=== PATIENT | male | born 1955 | race Caucasian/White ===

== ENCOUNTER 2016-08-04 10:07 | Emergency (ER) | payer SELFPAY ==
[~2016-08-04] VITALS: Ht 167.6 cm; Wt 63.2 kg
[~2016-08-04 10:07] MED LIST: ASPI325T PO; HYDR10TA16 PO; LISI-360 PO; VALI10TA PO
[2016-08-04 10:21] VITALS: BP 129/76; PULSE 68; RESP 16; TEMP 98.5; O2SAT 99
[2016-08-04] MEDS ORDERED: LISI10TA3 PO (10:33)
[2016-08-04] MEDS ORDERED: MELO-1 PO (10:33)
[2016-08-04] MEDS ORDERED: DIAZ10TA PO (10:33)
[2016-08-04] MEDS ORDERED: HYDR-3535 PO (10:33)
[2016-08-04] MEDS ORDERED: ASPI325T PO (10:33)
--- NOTE | 2016-08-04 11:17 | PD ---
HPI Chief Complaint: Pain: Acute or Chronic Time Seen by Provider: 10:43 Travel History International Travel<30 days: No Contact w/Intl Traveler<30days: No Traveled to known affect area: No History of Present Illness HPI 60-year-old male with a history of degenerative disc disease who is on chronic opiates at home presents emergency department for evaluation of acute on chronic low back pain for the past 4 days. 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 Denies any history of acute onset, denies any saddle anesthesia denies any difficulty urinating and denies any focal weakness of back. Patient states is become hard for him to get out of bed because of his pain. PFSH Past Medical History Hx Anticoagulant Therapy: Yes Arthritis: No Anxiety: Yes (LATELY, PERSONAL ISSUES) Depression: No Heart Rhythm Problems: No Cancer: No Cardiac Catheterization: Yes Cardiovascular Problems: Yes (htn on meds, [place] x 3 with one stents) High Cholesterol: No Chest Pain: Yes (PAST ONE DAY ) Congestive Heart Failure: No Coronary Artery Disease: Yes (STENT) Diminished Hearing: No Endocrine: No Gastrointestinal Disorders: Yes GERD: Yes Genitourinary: No Hiatal Hernia: No Hypertension: Yes Immune Disorder: No Implanted Vascular Access Dvce: No Musculoskeletal: Yes Neurologic: No Psychiatric: No Reproductive: No Respiratory: No (PT HAS BECOME CONGESTED AND FEBRILE SINCE ADMISSION.) Ulcer: No Past Surgical History Abdominal Surgery: Yes (APPENDECTOMY) Appendectomy: Yes Cardiac Surgery: No Coronary Stent: Yes Ear Surgery: No Endocrine Surgery: No Eye Surgery: No Genitourinary Surgery: No Gynecologic Surgery: No Neurologic Surgery: No Oral Surgery: Yes (TEETH PULLED) Thoracic Surgery: No Other Surgery: Yes Social History Alcohol Use: Yes (4-5 DRINKS A DAY) Tobacco Use: No Substance Use: No Allergies-Medications (Allergen,Severity, Reaction): Coded Allergies: No Known Allergies (Verified , 08/04/16) Reported Meds & Prescriptions Reported Meds & Active Scripts Active Prednisone 20 Mg Tab 60 Mg PO DAILY 5 Days Reported Meloxicam 15 Mg Tab 15 Mg PO DAILY Lisinopril 10 Mg Tab 10 Mg PO DAILY Lortab (Hydrocodone-Acetaminophen) 10-325 Mg Tab 1 Tab PO TID PRN Diazepam 10 Mg Tab 10 Mg PO HS PRN Aspirin 325 Mg Tab 325 Mg PO DAILY Review of Systems Except as stated in HPI: all other systems reviewed are Neg Physical Exam Narrative GENERAL: Well-nourished, well-developed patient. SKIN: Warm and dry. HEAD: Normocephalic. EYES: No scleral icterus. No injection or drainage. NECK: Supple, trachea midline. No JVD or lymphadenopathy. CARDIOVASCULAR: Regular rate and rhythm without murmurs, gallops, or rubs. RESPIRATORY: Breath sounds equal bilaterally. No accessory muscle use. GASTROINTESTINAL: Abdomen soft, non-tender, nondistended. MUSCULOSKELETAL: No cyanosis, or edema. No midline CT or L-spine tenderness. No tenderness at the SI joints. Patient ambulates emergency Department with an antalgic gait. Full strength in bilateral lower extremities. Pulses motor and sensory intact distally in all 4 extremity's. Sensory is intact in all 4 extremity's. BACK: Nontender without obvious deformity. No CVA tenderness. Data Data Last Documented VS Vital Signs Date Time Temp Pulse Resp B/P Pulse Ox O2 Delivery O2 Flow Rate FiO2 08/04/16 11:23 66 18 141/79 100 Room Air 08/04/16 10:[address] Lumb Spine W/O Contrast (08/04/16 ) MDM Medical Decision Making Medical Screen Exam Complete: Yes Emergency Medical Condition: Yes Differential Diagnosis Pathologic fracture, DDD, Cauda Equina Syndrome excluded on H/P, sciatica, muscle spasm Narrative Course Last [address] 08/04/16 0000 Signed Impressions: Service Date/Time: Thursday, August 04, 2016 11:11 - CONCLUSION: 1. Mild broad-based disc bulges at L-2, L3-4 and L5-S1 levels without canal stenosis. 2. Her broad-based protrusion L4-5 causes mild canal stenosis. 3. Moderate broad-based disc bulge L2-3 causing mild canal stenosis. 4. Neural foraminal narrowing at L4-5 as described above. Darryl Bridges MD Patient given pain medication. Discussed need for follow upwith PCP and possibly neurosurgeon in future. May need OP MRI. Ambulates in ED and has full strength. Cauda equina ROS negative. Stable for DC. Discussed return to ED criteria and symptomatic management at home. Diagnosis Primary Impression: Acute exacerbation of chronic low back pain Med/Other Pt SpecificInfo: Prescription(s) given Scripts Prednisone 20 Mg Tab60 Mg PO DAILY 5 Days Ref 0 Prov:Herrera Jordan MD 08/04/16 Disposition: 01 DISCHARGE HOME Condition: Stable Herrera Jordan MD Aug 04, 2016 11:17
[2016-08-04 11:23] VITALS: BP 141/79; PULSE 66; RESP 18; O2SAT 100
--- NOTE | 2016-08-04 11:47 | RADHPO ---
EXAM DATE/TIME: 08/04/2016 11:11 [facility] COMPARISON: No previous studies available for comparison. INDICATIONS : Lower back pain for five days, no recent trauma. RADIATION DOSE: 19.92 CTDIvol (mGy) MEDICAL HISTORY : Cardiovascular disease. Gastroesophageal reflux disease. Hypertension. SURGICAL HISTORY : Coronary artery stent. Appendectomy. ENCOUNTER: Initial ACUITY: 4 - 6 days PAIN SCALE: 5/10 LOCATION: Bilateral lower back. TECHNIQUE: Volumetric scanning of the lumbar spine was performed. Multiplanar reconstructions in the sagittal, coronal and oblique axial planes were performed. Using automated exposure control and adjustment of the mA and/or kV according to patient size, radiation dose was kept as low as reasonably achievable t o obtain optimal diagnostic quality images. FINDINGS: VERTEBRAE: Normal vertebral body height. Degenerative disc disease at L2-3, L4-5 and L5-S1 levels. Diffuse mild degenerative changes. Incidentally osteophytes at multiple levels. ALIGNMENT: No evidence of subluxation. T12-L1: The thecal sac has a normal diameter. No evidence of disc bulge or protrusion. The neural foramina are patent bilaterally. L1-L2: Mild broad-based disc bulge abuts ventral thecal sac. No canal stenosis.. The neural foramina are pa tent bilaterally. L2-L3: Moderate broad-based disc bulge abuts ventral thecal sac. Mild degree of canal stenosis. Mild facet a rthropathy The neural foramina are patent bilaterally. L3-L4: Mild broad-based disc bulge abuts ventral thecal sac. No canal stenosis. The neural foramina are pat ent bilaterally. L4-L5: Moderate broad-based protrusion abuts the ventral thecal sac. Mild degree of canal stenosis. Mild to moderate facet arthropathy. Mild neural foraminal narrowing on the left and moderate to severe narrow ing on the right. The neural foramina are patent bilaterally. L5-S1: Mild broad-based disc bulge abuts ventral thecal sac. No canal stenosis.. The neural foramina are pa tent bilaterally. CONCLUSION: 1. Mild broad-based disc bulges at L-2, L3-4 and L5-S1 levels without canal stenosis. 2. Her broad-based protrusion L4-5 causes mild canal stenosis. 3. Moderate broad-based disc bulge L2-3 causing mild canal stenosis. 4. Neural foraminal narrowing at L4-5 as described above. Darryl Bridges MD on August 04, 2016 at 11:39 Board Certified Radiologist. This report was verified electronically.
[2016-08-04] MEDS ORDERED: PRED20 PO (11:57)
== END 2016-08-04 12:08 | disposition home or self-care (01) ==
LOC: PHED 10:07
DX: M54.5 Low back pain (principal); G89.29 Other chronic pain; I10 Essential (primary) hypertension; Z79.01 Long term (current) use of anticoagulants; Z87.39 Personal history of other diseases of the musculoskeletal system and connective tissue; Z86.79 Personal history of other diseases of the circulatory system; Z87.19 Personal history of other diseases of the digestive system
CPT/HCPCS: 72131

== ENCOUNTER 2016-08-12 17:22 | Inpatient (IN) | payer SELFPAY ==
[~2016-08-12] VITALS: Ht 170.2 cm; Wt 62.0 kg
[~2016-08-12 17:22] MED LIST changes: +DIAZ10TA PO; +HYDR-3535 PO; -HYDR10TA16 PO; -LISI-360 PO; +LISI10TA3 PO; +MELO-1 PO; +PRED20 PO; -VALI10TA PO
[2016-08-12 17:24] VITALS: BP_SYST 111; BP_SYST 127; BP_DIAS 55; BP_DIAS 68; PULSE 115; RESP 22; TEMP 97.8; O2SAT 97
[2016-08-12] MEDS ORDERED: SODIUM CHLOR 0.9% 1000 ML INJ 1,000 ML IV SCH (17:58)
--- NOTE | 2016-08-12 17:58 | PD ---
HPI Chief Complaint: Cardiac Complaint Time Seen by Provider: 17:48 Travel History International Travel<30 days: No Contact w/Intl Traveler<30days: No Traveled to known affect area: No History of Present Illness HPI This is a 60-year-old male with history of coronary artery disease with stents in place, hypertension presents for evaluation. He reports that 2 days ago he ate some pizza and later on in the evening he developed nausea, vomiting, diarrhea. He reports that his friend who ate pizza also had nausea, vomiting and diarrhea. He reports multiple episodes of nausea, vomiting and diarrhea over the past 2 days. He reports the diarrhea has been black in color. He endorses some substernal chest pain for the past 2 days as well which is worse with exertion. He describes it as a sharp pain. It does not radiate anywhere else. He does also endorse some dyspnea. He was seen by his primary care physician today, Dr. Dominguez, who told him that his blood pressure was lower than usual and his long-standing murmur was more wild than usual. He sent him here for further evaluation. The patient reports daily aspirin and meloxicam use. Denies any history of peptic ulcer disease. He does occasionally drink. Denies any abdominal pain. Denies any calf swelling, recent travel. PFSH Past Medical History Hx Anticoagulant Therapy: Yes Arthritis: No Anxiety: Yes (LATELY, PERSONAL ISSUES) Depression: No Heart Rhythm Problems: No Cancer: No Cardiac Catheterization: Yes Cardiovascular Problems: Yes (htn on meds, [place] x 3 with one stents) High Cholesterol: No Chest Pain: Yes (PAST ONE DAY ) Congestive Heart Failure: No Coronary Artery Disease: Yes (STENT) Diminished Hearing: No Endocrine: No Gastrointestinal Disorders: Yes GERD: Yes Genitourinary: No Hiatal Hernia: No Hypertension: Yes Immune Disorder: No Implanted Vascular Access Dvce: No Musculoskeletal: Yes Neurologic: No Psychiatric: No Reproductive: No Respiratory: No (PT HAS BECOME CONGESTED AND FEBRILE SINCE ADMISSION.) Ulcer: No Past Surgical History Abdominal Surgery: Yes (APPENDECTOMY) Appendectomy: Yes Cardiac Surgery: No Coronary Stent: Yes Ear Surgery: No Endocrine Surgery: No Eye Surgery: No Genitourinary Surgery: No Gynecologic Surgery: No Neurologic Surgery: No Oral Surgery: Yes (TEETH PULLED) Thoracic Surgery: No Other Surgery: Yes Social History Alcohol Use: Yes (4-5 DRINKS A DAY) Tobacco Use: No Substance Use: No Allergies-Medications (Allergen,Severity, Reaction): Coded Allergies: No Known Allergies (Verified , 08/12/16) Reported Meds & Prescriptions Reported Meds & Active Scripts Active Reported Meloxicam 15 Mg Tab 15 Mg PO DAILY Lisinopril 10 Mg Tab 10 Mg PO DAILY Lortab (Hydrocodone-Acetaminophen) 10-325 Mg Tab 1 Tab PO TID PRN Diazepam 10 Mg Tab 10 Mg PO HS PRN Aspirin 325 Mg Tab 325 Mg PO DAILY Review of Systems Except as stated in HPI: all other systems reviewed are Neg Physical Exam Narrative GENERAL: Well-developed well-nourished male in no acute distress SKIN: Warm and dry. HEAD: Atraumatic. Normocephalic. EYES: Pupils equal and round. No scleral icterus. No injection or drainage. ENT: No nasal bleeding or discharge. Mucous membranes pink and moist. NECK: Trachea midline. No JVD. CARDIOVASCULAR: Regular rate and rhythm. 2/6 systolic murmur is appreciated. RESPIRATORY: No accessory muscle use. Clear to auscultation. Breath sounds equal bilaterally. GASTROINTESTINAL: Abdomen soft, non-tender, nondistended. Hepatic and splenic margins not palpable. Rectal examination is Hemoccult positive. MUSCULOSKELETAL: No obvious deformities. No edema NEUROLOGICAL: Awake and alert. No obvious cranial nerve deficits. Motor grossly within normal limits. Normal speech. PSYCHIATRIC: Appropriate mood and affect; insight and judgment normal. Data Data Last Documented VS Vital Signs Date Time Temp Pulse Resp B/P Pulse Ox O2 Delivery O2 Flow Rate FiO2 08/12/16 18:33 100 Room Air 08/12/16 17:24 111/68 08/12/16 17:24 97.8 115 22 Orders Type And Screen (08/12/16 17:55) Complete Blood Count With Diff (08/12/16 17:55) Comprehensive Metabolic Panel (08/12/16 17:55) Lipase (08/12/16 17:55) Act Partial Throm Time (Ptt) (08/12/16 17:55) Prothrombin Time / Inr (Pt) (08/12/16 17:55) Electrocardiogram (08/12/16 17:55) Ckmb (Isoenzyme) Profile (08/12/16 17:55) Magnesium (Mg) (08/12/16 17:55) Troponin I (08/12/16 17:55) Chest, Single Ap (08/12/16 17:55) Pantoprazole Inj (Protonix Inj) (08/12/16 18:00) Sodium Chlor 0.9% 1000 Ml Inj (Ns 1000 M (08/12/16 17:58) Labs Laboratory Tests Test 08/12/16 18:00 White Blood Count 15.4 TH/MM3 Red Blood Count 2.59 MIL/MM3 Hemoglobin 8.0 GM/DL Hematocrit 24.0 % Mean Corpuscular Volume 92.4 FL Mean Corpuscular Hemoglobin 30.8 PG Mean Corpuscular Hemoglobin 33.3 % Concent Red Cell Distribution Width 14.1 % Platelet Count 289 TH/MM3 Mean Platelet Volume 8.4 FL Neutrophils (%) (Auto) 82.1 % Lymphocytes (%) (Auto) 11.4 % Monocytes (%) (Auto) 6.4 % Eosinophils (%) (Auto) 0.0 % Basophils (%) (Auto) 0.1 % Neutrophils # (Auto) 12.6 TH/MM3 Lymphocytes # (Auto) 1.8 TH/MM3 Monocytes # (Auto) 1.0 TH/MM3 Eosinophils # (Auto) 0.0 TH/MM3 Basophils # (Auto) 0.0 TH/MM3 CBC Comment DIFF FINAL Differential Comment Sodium Level 138 MEQ/L Potassium Level 5.0 MEQ/L Chloride Level 104 MEQ/L Carbon Dioxide Level 25.5 MEQ/L Anion Gap 9 MEQ/L Blood Urea Nitrogen 36 MG/DL Creatinine 1.90 MG/DL Estimat Glomerular Filtration 36 ML/MIN Rate Random Glucose 124 MG/DL Calcium Level 10.1 MG/DL Magnesium Level 2.1 MG/DL Total Bilirubin 0.4 MG/DL Aspartate Amino Transf 13 U/L (AST/SGOT) Alanine Aminotransferase 19 U/L (ALT/SGPT) Alkaline Phosphatase 43 U/L Total Creatine Kinase 30 U/L Troponin I 0.02 NG/ML Total Protein 6.6 GM/DL Albumin 3.8 GM/DL Lipase 198 U/L Blood Type O POSITIVE MDM Medical Decision Making Medical Screen Exam Complete: Yes Emergency Medical Condition: Yes Medical Record Reviewed: Yes Differential Diagnosis Upper GI bleed, peptic ulcer disease, lower GI bleed, gastroenteritis, dehydration, electrolyte abnormality, acute coronary syndrome, pulmonary embolism, aortic dissection Narrative Course 60-year-old male presents with 2 days of substernal chest pain, nausea, vomiting , diarrhea with black tarry stools, shortness of breath. He does report that the GI symptoms started shortly after eating pizza and that his friend had similar nausea and vomiting symptoms. He is Hemoccult positive, tachycardic. Lab work, type and screen, chest x-ray, EKG been ordered. 1 L IV fluid bolus, Protonix 7 ordered. The patient will be moved to medical bed when one becomes available. [facility]Prompt Point of Care Internal Pos. & Neg. Controls: Passed Fecal Specimen Occult Blood: Positive Samir Prakash Aug 12, 2016 17:57
[2016-08-12] MEDS ORDERED: PANTOPRAZOLE SODIUM 40 MG VIAL IVP ONE (18:00)
--- NOTE | 2016-08-12 18:23 | PD ---
Physical Exam Narrative I, Dr. Delaney, have reviewed the advance practice practitioner's documentation and am in agreement, met with the patient face to face, made the diagnosis, and the medical decision making was done by me. *My assessment and Findings: ACS vs. ischemia secondary to GI bleed vs. Upper GI bleed 60yo M with PMH of CAD presents to the ED with c/o substernal chest pain for 2 days. Pain is intermittent, pressure like and worst with exertion. +SOB with exertion. Nonradiating. 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 Pt also with NBNB vomiting and black diarrhea for 2 days. Pt was seen at triage and hemaprompt was positive. He takes meloxicam for his osteoarthritis daily. Labs reviewed and hemoglobin is 8.0. Given pt's cardiac history and symptoms, active GI bleed , will transfuse 2 units of PRBC. Pt initially mildly tachycardic but HR has decreased since he was transferred to medical bed. VS stable. Pt placed on protonix drip and discussed with Dr. Caro and accepted to his service. GENERAL: 60yo M in mild distress. SKIN: Focused skin assessment warm/dry. HEAD: Atraumatic. Normocephalic. NECK: Trachea midline. No JVD. CARDIOVASCULAR: Regular rate and rhythm. +Murmur in apex. RESPIRATORY: No accessory muscle use. Clear to auscultation. Breath sounds equal bilaterally. GASTROINTESTINAL: Abdomen soft, non-tender, nondistended. MUSCULOSKELETAL: No obvious deformities. No clubbing. No cyanosis. No edema. NEUROLOGICAL: Awake and alert. No obvious cranial nerve deficits. Motor grossly within normal limits. Normal speech. PSYCHIATRIC: Appropriate mood and affect; insight and judgment normal. Data Data Last Documented VS Vital Signs Date Time Temp Pulse Resp B/P Pulse Ox O2 Delivery O2 Flow Rate FiO2 08/12/16 19:20 78 15 100 Room Air 08/12/16 19:19 112/58 08/12/16 17:24 97.8 Orders Type And Screen (08/12/16 17:55) Complete Blood Count With Diff (08/12/16 17:55) Comprehensive Metabolic Panel (08/12/16 17:55) Lipase (08/12/16 17:55) Act Partial Throm Time (Ptt) (08/12/16 17:55) Prothrombin Time / Inr (Pt) (08/12/16 17:55) Ckmb (Isoenzyme) Profile (08/12/16 17:55) Magnesium (Mg) (08/12/16 17:55) Troponin I (08/12/16 17:55) Chest, Single Ap (08/12/16 17:55) Pantoprazole Inj (Protonix Inj) (08/12/16 18:00) Sodium Chlor 0.9% 1000 Ml Inj (Ns 1000 M (08/12/16 17:58) Pantoprazole Inj (Protonix Inj) (08/12/16 19:45) Admit Order (Ed Use Only) (08/12/16 20:21) Consult Gastroenterology (08/12/16 ) Blood Product Administration .UPON TRANSFUSION (08/12/16 20:23) Sodium Chlor 0.9% 250 Ml Inj (Ns 250 Ml (08/12/16 20:30) Red Blood Cells (Rbc) (08/12/16 20:23) Labs Laboratory Tests Test 08/12/16 08/12/16 18:00 20:23 White Blood Count 15.4 TH/MM3 Red Blood Count 2.59 MIL/MM3 Hemoglobin 8.0 GM/DL Hematocrit 24.0 % Mean Corpuscular Volume 92.4 FL Mean Corpuscular Hemoglobin 30.8 PG Mean Corpuscular Hemoglobin 33.3 % Concent Red Cell Distribution Width 14.1 % Platelet Count 289 TH/MM3 Mean Platelet Volume 8.4 FL Neutrophils (%) (Auto) 82.1 % Lymphocytes (%) (Auto) 11.4 % Monocytes (%) (Auto) 6.4 % Eosinophils (%) (Auto) 0.0 % Basophils (%) (Auto) 0.1 % Neutrophils # (Auto) 12.6 TH/MM3 Lymphocytes # (Auto) 1.8 TH/MM3 Monocytes # (Auto) 1.0 TH/MM3 Eosinophils # (Auto) 0.0 TH/MM3 Basophils # (Auto) 0.0 TH/MM3 CBC Comment DIFF FINAL Differential Comment Prothrombin Time 10.7 SEC Prothromb Time International 1.0 RATIO Ratio Activated Partial 20.5 SEC Thromboplast Time Sodium Level 138 MEQ/L Potassium Level 5.0 MEQ/L Chloride Level 104 MEQ/L Carbon Dioxide Level 25.5 MEQ/L Anion Gap 9 MEQ/L Blood Urea Nitrogen 36 MG/DL Creatinine 1.90 MG/DL Estimat Glomerular Filtration 36 ML/MIN Rate Random Glucose 124 MG/DL Calcium Level 10.1 MG/DL Magnesium Level 2.1 MG/DL Total Bilirubin 0.4 MG/DL Aspartate Amino Transf 13 U/L (AST/SGOT) Alanine Aminotransferase 19 U/L (ALT/SGPT) Alkaline Phosphatase 43 U/L Total Creatine Kinase 30 U/L Troponin I 0.02 NG/ML Total Protein 6.6 GM/DL Albumin 3.8 GM/DL Lipase 198 U/L Blood Type O POSITIVE Antibody Screen NEGATIVE Blood Bank Comment Crossmatch Leukocyte-Reduced Red Blood Cells MDM Supervised Visit with JESSICA: Yes Critical Care Narrative Aggregate critical care time was 40 minutes. Time to perform other separately billable procedures was not included in the critical care time. My time did not include minutes spent treating any other patients simultaneously or on activities that did not directly contribute to the patient's treatment. The services I provided to this patient were to treat and/or prevent clinically significant deterioration that could result in: cardiovascular collapse or . I provided critical care services requiring my management, as noted below: Chart data review, documentation time, medication orders and management, vital sign assessments/reviewing monitor data, ordering and reviewing lab tests, ordering and interpreting/reviewing x-rays and diagnostic studies, care of the patient and discussion of the patient with the admitting physicians. Diagnosis Primary Impression: GI bleed Qualified Code: K92.2 - Gastrointestinal hemorrhage, unspecified gastrointestinal hemorrhage type Cristina Delaney DO Aug 12, 2016 18:23
--- NOTE | 2016-08-12 18:33 | RADRPT ---
EXAM DATE/TIME: 08/12/2016 18:13 [facility] COMPARISON: CHEST SINGLE AP, July 05, 2014, 10:37. INDICATIONS : Chest pain. MEDICAL HISTORY : Cardiovascular disease. Gastroesophageal reflux disease. Hypertension. SURGICAL HISTORY : Coronary artery stent. Appendectomy. ENCOUNTER: Initial ACUITY: 1 day PAIN SCORE: 5/10 LOCATION: Bilateral middle chest FINDINGS: A single view of the chest demonstrates the lungs to be symmetrically aerated without evidence of mas s, infiltrate or effusion. The cardiomediastinal contours are unremarkable. Osseous structures are intact. CONCLUSION: No acute disease. Herrera Hall MD on August 12, 2016 at 18:31 Board Certified Radiologist. This report was verified electronically.
[2016-08-12 18:39] LABS: AUTOMATED NEUTROPHIL # 12.6 TH/MM3 (1.8-7.7); BASOPHIL % 0.1 % (0.0-2.0); HEMO FLAGS DIFF FINAL; LYMPH % 11.4 % (9.0-44.0); LYMPHOCYTE # 1.8 TH/MM3 (1.0-4.8); MEAN CELL VOLUME 92.4 FL (80.0-100.0); MEAN CORPUSCULAR HEMOGLOBIN 30.8 PG (27.0-34.0); MEAN CORPUSCULAR HGB CONC 33.3 % (32.0-36.0); MONO % 6.4 % (0.0-8.0); NEUT % 82.1 % (16.0-70.0); PLATELET COUNT 289 TH/MM3 (150-450); RED BLOOD COUNT 2.59 MIL/MM3 (4.50-5.90); RED CELL DISTRIBUTION WIDTH 14.1 % (11.6-17.2); WHITE BLOOD COUNT 15.4 TH/MM3 (4.0-11.0)
[2016-08-12 18:51] LABS: ANION GAP 9 MEQ/L (5-15); AST (GOT) 13 U/L (15-37); BICARBONATE 25.5 MEQ/L (21.0-32.0); BLOOD UREA NITROGEN 36 MG/DL (7-18); CHLORIDE 104 MEQ/L (98-107); GLOMERULAR FILTRATION RATE 36 ML/MIN (>89); MAGNESIUM 2.1 MG/DL (1.5-2.5); SODIUM (NA) 138 MEQ/L (136-145)
[2016-08-12 18:55] LABS: ALKALINE PHOSPHATASE 43 U/L (45-117); ALT (GPT) 19 U/L (12-78); TOTAL BILIRUBIN ADULT 0.4 MG/DL (0.2-1.0)
[2016-08-12 18:58] LABS: CREATINE KINASE 30 U/L (39-308)
[2016-08-12 19:03] LABS: APTT (PATIENT) 20.5 SEC (24.3-30.1); PROTHROMBIN TIME - PATIENT 10.7 SEC (9.8-11.6)
[2016-08-12 19:19] VITALS: BP 112/58; PULSE 80; RESP 15; O2SAT 100
[2016-08-12] MEDS ORDERED: SODIUM CHLOR 0.9% 250 ML INJ 250 ML IV ONE (20:30)
[2016-08-12] MEDS: PANTOPRAZOLE INJ 80 MG in SODIUM CHLORIDE 0.9% INJ 100 ML IV SCH (20:58)
[2016-08-12] MEDS: SODIUM CHLORIDE 0.9% FLUSH 10 ML FLUSH IV FLUSH SCH (21:00)
[2016-08-12] MEDS ORDERED: ACETAMINOPHEN 325 MG TAB PO PRN (21:00)
[2016-08-12] MEDS ORDERED: ONDANSETRON HCL 4 MG/2 ML VIAL IVP PRN (21:00)
[2016-08-12] MEDS ORDERED: NALOXONE HCL 0.4 MG/ML AMP IV PRN (21:00)
[2016-08-12] MEDS ORDERED: SODIUM CHLORIDE 0.9% FLUSH 10 ML FLUSH IV FLUSH PRN (21:00)
[2016-08-12] MEDS: SODIUM CHLOR 0.9% 1000 ML INJ 1,000 ML IV SCH (22:36)
[2016-08-12 22:45] VITALS: BP 125/53; PULSE 72; RESP 15; TEMP 98.7; O2SAT 100
[2016-08-12 23:17] VITALS: BP 113/60; PULSE 76; RESP 14; TEMP 99.2; O2SAT 99
[2016-08-13] VITALS (16 sets, daily range): BP systolic 101–146; BP diastolic 57–85; PULSE 47–120; RESP 18–21; TEMP 97.2–98.9; O2SAT 92–100
[2016-08-13] MEDS: PANTOPRAZOLE INJ 80 MG in SODIUM CHLORIDE 0.9% INJ 100 ML IV SCH ×2 (06:33→21:32)
[2016-08-13] MEDS: SODIUM CHLOR 0.9% 1000 ML INJ 1,000 ML IV SCH ×2 (06:33→21:33)
--- NOTE | 2016-08-13 08:35 | HHI.HP ---
HPI Service [facility] Primary Care Physician Scott Dominguez, DO Admission Diagnosis GI bleed, chest pain Diagnoses: Chief Complaint: chest pressure, n/v, black stools (Kalli Vale) Travel History International Travel<30 Days: No Contact w/Intl Traveler <30 Da: No Traveled to Known Affected Are: No (Kalli Vale) History of Present Illness This is a 60 year old male with PMHx of CAD with previous stent to LAD in 2009, HTN, anxiety, chronic back pain, daily alcohol use. Patient presented to the emergency room complaining of nausea vomiting diarrhea and epigastric chest discomfort. According to patient, on Friday he and a friend ate some pizza out of a 11[employer] store. The next day both him and his friend had abdominal cramping, nausea vomiting and diarrhea. Emesis consisted of undigested food later was bilious color. Indicated that he started to have stools that were black and tarry, approximately 2-4 a day. Initially he thought it was for poisoning. In addition to above symptoms, he also noted epigastric discomfort or associated with shortness of breath, no radiation, some diaphoresis. Indicated chest discomfort for improve with rest and was exacerbated by activity. Epigastric discomfort is elicited with palpation. Symptoms persisted over the weekend and worsened. He went to see his primary care physician on Friday and was instructed to come to the emergency room for further evaluation. Patient endorses that he drinks approximately a six pack of beer every day and on the weekends he drinks vodka. He denies any prior history of GI bleed, no heartburn , no peptic ulcer disease. He does take aspirin and meloxicam for arthritis and chronic back pain. Denies any prior GI workup. In regards to his cardiac issues, he has seen Dr. Lamas in the past while he's been at this facility. He has not followed up with him in some time. He had a stress test in 2014 that was negative. A stent was placed in 2009 to LAD. States he was told by his primary care physician that he has a murmur, he has not had an echocardiogram in the past. He is compliant with taking medications. The patient denies any fever, no chills. No urinary symptoms. He presented to the emergency room for further evaluation. Laboratory workup completed in the emergency room reveal hemoglobin 8.0, hematocrit 24, WBC 15.4. He was noted dehydrated, BUN 36, creatinine 1.90. AST 13, ALP 19. Hemoccult positive. Troponin 2 sets negative. Chest x-ray did not reveal any acute findings. EKG did not reveal any acute findings, sinus rhythm. Patient was given IV fluids, Protonix drip was started. 2 units of blood were given. Laboratory workup for this morning is pending. Patient denies any chest discomfort, he is anxious, requesting Valium. Patient is admitted for further evaluation and treatment. ( Kalli Vale) Review of Systems Constitutional: COMPLAINS OF: Change in appetite, DENIES: Diaphoretic episodes , Fatigue, Fever, Weight gain, Weight loss, Chills, Dizziness, Night Sweats Endocrine: DENIES: Heat/cold intolerance, Polydipsia, Polyuria, Polyphagia Eyes: DENIES: Blurred vision, Diplopia, Eye inflammation, Eye pain, Vision loss , Photosensitivity, Double Vision Ears, nose, mouth, throat: DENIES: Tinnitus, Hearing loss, Vertigo, Nasal discharge, Oral lesions, Throat pain, Hoarseness, Ear Pain, Running Nose, Epistaxis, Sinus Pain, Toothache, Odynophagia Respiratory: DENIES: Apneas, Cough, Snoring, Wheezing, Hemoptysis, Sputum production, Shortness of breath Cardiovascular: COMPLAINS OF: Chest pain, Dyspnea on Exertion Gastrointestinal: COMPLAINS OF: Abdominal pain, Black stools, Nausea, Vomiting , DENIES: Bloody stools, Constipation, Diarrhea, Difficulty Swallowing, Anorexia Genitourinary: DENIES: Sexual dysfunction, Urinary frequency, Urinary incontinence, Urgency, Hematuria, Dysuria, Nocturia, Penile Discharge, Testicular Pain, Testicular Swelling Musculoskeletal: DENIES: Joint pain, Muscle aches, Stiffness, Joint Swelling, Back pain, Neck pain Integumentary: DENIES: Abnormal pigmentation, Nail changes, Pruritus, Rash Hematologic/lymphatic: DENIES: Bruising, Lymphadenopathy Immunologic/allergic: DENIES: Eczema, Urticaria Neurologic: DENIES: Abnormal gait, Headache, Localized weakness, Paresthesias, Seizures, Speech Problems, Tremor, Poor Balance Psychiatric: COMPLAINS OF: Anxiety, DENIES: Confusion, Mood changes, Depression, Hallucinations, Agitation, Suicidal Ideation, Homicidal Ideation, Delusions (Kalli Vale) Past Family Social History Past Medical History Chronic back pain High blood pressure Coronary artery disease Anxiety STT 2014, negative findings. ETOH use Was told he has a murmur Past Surgical History Cardiac catheterization with stent placement to LAD 2010 Appendectomy Reported Medications Reported Meds & Active Scripts Active Reported Meloxicam 15 Mg Tab 15 Mg PO DAILY Lisinopril 10 Mg Tab 10 Mg PO DAILY Lortab (Hydrocodone-Acetaminophen) 10-325 Mg Tab 1 Tab PO TID PRN Diazepam 10 Mg Tab 10 Mg PO HS PRN Aspirin 325 Mg Tab 325 Mg PO DAILY (Kalli Vale) Allergies: Coded Allergies: No Known Allergies (Verified , 08/12/16) Active Ordered Medications Inpatient Medications Acetaminophen (Tylenol) 650 mg Q4H PRN PO TEMP > 100.4; Start 08/12/16 at 21:00 Influenza Virus Vaccine (Flu (Quadrivalent) Vaccine Inj) 0.5 ml ONCE ONCE IM ; Start 08/14/16 at 10:00; Stop 08/14/16 at 10:01 Naloxone HCl (Narcan Inj) 0.4 mg UNSCH PRN IV SEE LABEL COMMENTS; Start at 21:00 Ondansetron HCl (Zofran Inj) 4 mg Q6H PRN IVP NAUSEA OR VOMITING; Start at 21:00 Pantoprazole Sodium 40 mg 40 mg ONCE ONCE IVP Last administered on 08/12/16 18:24; Start 08/12/16 at 18:00; Stop 08/12/16 at 18:01; Status DC Pantoprazole Sodium 80 mg/ Sodium Chloride 100 ml @ 10 mls/hr Q10H IV Last administered on 08/13/16 06:33; Start 08/12/16 at 19:45 Pneumococcal Polyvalent Vaccine (Pneumovax-23 Inj) 25 mcg ONCE ONCE IM ; Start 08/14/16 at 10:00; Stop 08/14/16 at 10:01 Sodium Chloride (NS 1000 ml Inj) 1,000 ml @ 100 mls/hr Q10H IV Last administered on 08/13/16 06:33; Start 08/12/16 at 21:00 Sodium Chloride (NS Flush) 2 ml BID IV FLUSH ; Start 08/12/16 at 21:00 Family History Mother , dementia Father, , old age. 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 Smoked in his 20s, drinks a 6 pack every night and vodka during weekend. No illegal drug use. (Kalli Vale) Physical Exam Vital Signs Vital Signs Date Time Temp Pulse Resp B/P Pulse Ox O2 Delivery O2 Flow Rate FiO2 08/13/16 08:29 97.2 63 18 121/57 92 08/13/16 07:00 98.4 72 21 115/70 98 08/13/16 05:45 98.9 72 20 109/68 99 08/13/16 04:45 98.8 68 20 110/70 08/13/16 03:45 98.8 69 20 112/68 100 08/13/16 03:30 98.2 71 20 115/67 99 08/13/16 03:10 98.9 70 19 101/60 100 08/13/16 02:05 97.8 68 20 121/58 98 08/13/16 01:25 97.8 68 18 131/58 99 08/13/16 00:22 99 08/13/16 00:19 73 08/12/16 23:17 99.2 76 14 113/60 99 Room Air 08/12/16 22:45 98.7 72 15 125/53 100 Room Air 08/12/16 19:20 78 15 100 Room Air 08/12/16 19:19 80 15 112/58 100 08/12/16 18:33 100 Room Air 08/12/16 17:24 111/68 08/12/16 17:24 97.8 115 22 127/55 97 Physical Exam GENERAL: This is a well-nourished, well-developed patient, in no apparent distress. SKIN: No rashes, ecchymoses or lesions. Cool and dry. HEAD: Atraumatic. Normocephalic. No temporal or scalp tenderness. EYES: Pupils equal round and reactive. Extraocular motions intact. No scleral icterus. No injection or drainage. ENT: Nose without bleeding, purulent drainage or septal hematoma. Throat without erythema, tonsillar hypertrophy or exudate. Uvula midline. Airway patent. NECK: Trachea midline. No JVD or lymphadenopathy. Supple, nontender, no meningeal signs. CARDIOVASCULAR: Regular rate and rhythm, faint murmur. RESPIRATORY: Clear to auscultation. Breath sounds equal bilaterally. No wheezes , rales, or rhonchi. GASTROINTESTINAL: Abdomen soft, mild epigastric tenderness on palpation, nondistended. No hepato-splenomegaly, or palpable masses. No guarding. MUSCULOSKELETAL: Extremities without clubbing, cyanosis, or edema. No joint tenderness, effusion, or edema noted. No calf tenderness. Negative Homans sign bilaterally. NEUROLOGICAL: Awake and alert. Cranial nerves II through XII intact. Motor and sensory grossly within normal limits. Five out of 5 muscle strength in all muscle groups. Normal speech. Laboratory Laboratory Tests Test 08/12/16 08/12/16 08/12/16 08/12/16 18:00 20:23 21:16 22:40 White Blood Count 15.4 Red Blood Count 2.59 Hemoglobin 8.0 Hematocrit 24.0 Mean Corpuscular Volume 92.4 Mean Corpuscular Hemoglobin 30.8 Mean Corpuscular Hemoglobin 33.3 Concent Red Cell Distribution Width 14.1 Platelet Count 289 Mean Platelet Volume 8.4 Neutrophils (%) (Auto) 82.1 Lymphocytes (%) (Auto) 11.4 Monocytes (%) (Auto) 6.4 Eosinophils (%) (Auto) 0.0 Basophils (%) (Auto) 0.1 Neutrophils # (Auto) 12.6 Lymphocytes # (Auto) 1.8 Monocytes # (Auto) 1.0 Eosinophils # (Auto) 0.0 Basophils # (Auto) 0.0 CBC Comment DIFF FINAL Differential Comment Prothrombin Time 10.7 Prothromb Time International 1.0 Ratio Activated Partial 20.5 Thromboplast Time Sodium Level 138 Potassium Level 5.0 Chloride Level 104 Carbon Dioxide Level 25.5 Anion Gap 9 Blood Urea Nitrogen 36 Creatinine 1.90 Estimat Glomerular Filtration 36 Rate Random Glucose 124 Calcium Level 10.1 Magnesium Level 2.1 Total Bilirubin 0.4 Aspartate Amino Transf 13 (AST/SGOT) Alanine Aminotransferase 19 (ALT/SGPT) Alkaline Phosphatase 43 Total Creatine Kinase 30 Troponin I 0.02 0.03 Total Protein 6.6 Albumin 3.8 Lipase 198 Blood Type O POSITIVE O POSITIVE Antibody Screen NEGATIVE Blood Bank Comment Crossmatch Leukocyte-Reduced Red Blood Cells (Kalli Vale) Result Diagram: 08/12/16 1800 08/12/16 1800 Imaging Last Impressions Chest X-Ray 08/12/16 3866 Signed Impressions: Service Date/Time: Friday, August 12, 2016 18:13 - CONCLUSION: No acute disease. Herrera Hall MD (Kalli Vale) Assessment and Plan Problem List: (1) GI bleed (2) Chest pain (3) Coronary artery disease (4) Alcohol abuse (5) Hypertension (6) History of coronary artery stent placement (7) Anemia (8) Leukocytosis (9) Dehydration (10) Acute renal injury Assessment and Plan Admit to Dr. Quintero 60-year-old male with history of coronary artery disease and prior stent, chronic pain on meloxicam, daily alcohol use. Presented to emergency room with complaint of black tarry stools, 2 days of nausea, vomiting. Patient evaluated in the emergency room, was found with hemoglobin of 8, hematocrit 24 and Hemoccult positive. Also complained of epigastric discomfort, 2 sets of troponin negative and EKG negative, however patient with history of known coronary artery disease. GI bleed, melena -Consult gastroenterology for evaluation Keep nothing by mouth Continue with IV fluids Continue a Protonix drip Continue with serial H&H We'll hold aspirin and meloxicam Epigastric discomfort, 2 sets of troponin negative, history of known coronary artery disease, rule out acute coronary syndrome -Continue with serial troponin Unable to give aspirin due to GI bleed Consult cardiology for evaluation Continuous cardiac telemetry -We will check lipid profile Acute renal injury due to dehydration. -continue with IVF -Avoid nephrotoxic agents -Hold Meloxicam -Follow BMP, pending this morning. Murmur Echocardiogram has been ordered -Cardiology consultation Daily alcohol use, patient indicates drinking a sixpack every night as well as vodka on the weekends Alcohol abuse counseling Continue with Valium as needed for anxiety Folic acid and thiamine daily Chronic back pain -continue with home meds Home medications reviewed and initiated as indicated. SCDs for DVT prophylaxis PPI for GI prophylaxis Plan of care discussed with patient, RN and attending. Further management of the patient will be dependent on hospital course. This patient was seen by myself and Dr. Quintero, this note is written on his behalf. (Kalli Vale) Assessment and Plan PT SEEN AND EXAMINED ABVOE CHART REVIEWED DW PT PLAN OF CARE DW SUSAN (Mor Quintero MD) Physician Certification 2 Midnight Certification Type: Admission for Inpatient Services Order for Inpatient Services The services are ordered in accordance with Medicare regulations or non- Medicare payer requirements, as applicable. In the case of services not specified as inpatient-only, they are appropriately provided as inpatient services in accordance with the 2-midnight benchmark. Estimated LOS (days): 2 2 days is the estimated time the patient will need to remain in the hospital, assuming treatment plan goals are met and no additional complications. Post-Hospital Plan: Home (Kalli Vale) Problem Qualifiers (1) GI bleed: Qualified Code: K92.2 - Gastrointestinal hemorrhage, unspecified gastrointestinal hemorrhage type (2) Chest pain: (3) Coronary artery disease: Qualified Code: I25.118 - Coronary artery disease of [place] artery of [place] heart with stable angina pectoris (4) Hypertension: Qualified Code: I10 - Essential hypertension (5) Anemia: Qualified Code: D64.9 - Anemia, unspecified type (6) Leukocytosis: Qualified Code: D72.829 - Leukocytosis, unspecified type Kalli Vale Aug 13, 2016 08:35 Mor Quintero MD Aug 13, 2016 22:07
[2016-08-13] MEDS ORDERED: DIAZEPAM 10 MG TAB PO PRN (08:45)
[2016-08-13] MEDS ORDERED: ACETAMINOPHEN/HYDROcodone 325 MG/10 MG TAB PO PRN (08:45)
[2016-08-13 08:57] LABS: AUTOMATED NEUTROPHIL # 4.9 TH/MM3 (1.8-7.7); BASOPHIL % 0.3 % (0.0-2.0); EOSINOPHIL % 0.1 % (0.0-4.0); HEMATOCRIT 27.3 % (39.0-51.0); HEMO FLAGS DIFF FINAL; LYMPH % 34.7 % (9.0-44.0); LYMPHOCYTE # 3.1 TH/MM3 (1.0-4.8); MEAN CELL VOLUME 89.6 FL (80.0-100.0); MEAN CORPUSCULAR HEMOGLOBIN 31.3 PG (27.0-34.0); MEAN CORPUSCULAR HGB CONC 34.9 % (32.0-36.0); MONO % 9.7 % (0.0-8.0); NEUT % 55.2 % (16.0-70.0); PLATELET COUNT 166 TH/MM3 (150-450); RED BLOOD COUNT 3.05 MIL/MM3 (4.50-5.90); RED CELL DISTRIBUTION WIDTH 14.5 % (11.6-17.2); WHITE BLOOD COUNT 8.9 TH/MM3 (4.0-11.0)
[2016-08-13] MEDS: SODIUM CHLORIDE 0.9% FLUSH 10 ML FLUSH IV FLUSH SCH ×2 (09:00→21:00)
[2016-08-13 09:21] LABS: BICARBONATE 26.6 MEQ/L (21.0-32.0); POTASSIUM 3.9 MEQ/L (3.5-5.1)
[2016-08-13] MEDS ORDERED: PILL SPLITTER OTHER PRN (14:15)
[2016-08-13] MEDS ORDERED: METOPROLOL TARTRATE 25 MG TAB PO ONE (14:15)
--- NOTE | 2016-08-13 14:43 | PD.CONS ---
HPI History of Present Illness This is a 60 year old male who came to the ER for evaluation for chest pain, nausea, vomiting, and diarrhea. Friday night, he and a friend ate some pizza from -. The next day, both him and his friend felt ill and developed nausea, vomiting, diarrhea. His emesis consisted of undigested food and later bilious material. He denies any associated abdominal pain. He reports that he is having 3-4 loose stools per day- all of which were black and tarry. His friend ate the same food and had similar symptoms so he assumed it was food poisoning. He then started having chest discomfort, as if someone punched him in his chest with associated shortness of breath. He could not tell if this was heartburn or his heart. His symptoms persisted over the weekend and progressively worsened. He had a scheduled appointment with Dr. Dominguez on Friday and he explained his symptoms and was sent to the ER for further evaluation. He does drink 5 drinks a day on Saturdays and Sundays. He takes an aspirin and meloxicam every day for arthritis. He has never had ulcers. He has never had an egd/colonoscopy. (Jada Beaulieu) PFSH Past Medical History Chronic back pain High blood pressure Coronary artery disease Anxiety Past Surgical History Cardiac catheterization with stent placement (Jada Beaulieu) Coded Allergies: No Known Allergies (Verified , 08/12/16) Medications Allergies Coded Allergies Type Severity Reaction Last Updated Verified No Known Allergies 08/12/16 Yes Active Scripts Medications Dose Route/Sig Days Date Category Meloxicam 15 Mg Tab 15 Mg PO DAILY 08/04/16 Reported Lisinopril 10 Mg Tab 10 Mg PO DAILY 08/04/16 Reported Lortab (Hydrocodone-Acetaminophen) 10-325 Mg Tab 1 Tab PO TID PRN 08/04/16 Reported Diazepam 10 Mg Tab 10 Mg PO HS PRN 08/04/16 Reported Aspirin 325 Mg Tab 325 Mg PO DAILY 08/04/16 Reported Family History He denies any hx of esophageal, gastric, or colorectal cancer. Social History No tobacco. Drinks 5 alcoholic drinks on the weekends (Jada Beaulieu) Review of Systems Constitutional: COMPLAINS OF: Fatigue, DENIES: Fever, Weight loss, Chills Respiratory: COMPLAINS OF: Shortness of breath, DENIES: Cough Cardiovascular: COMPLAINS OF: Chest pain Gastrointestinal: COMPLAINS OF: Black stools, Nausea, Vomiting, Heartburn, DENIES: Abdominal pain, Bloody stools, Constipation, Diarrhea, Swelling of Abdomen, Hematemesis Musculoskeletal: COMPLAINS OF: Back pain Neurologic: DENIES: Headache Psychiatric: DENIES: Confusion (BeaulieuJada Gill SUSAN) GI Exam Vitals I&O Vital Signs Date Time Temp Pulse Resp B/P Pulse Ox O2 Delivery O2 Flow Rate FiO2 08/13/16 11:11 98.3 60 18 114/70 98 08/13/16 08:29 97.2 63 18 121/57 92 08/13/16 07:00 98.4 72 21 115/70 98 08/13/16 05:45 98.9 72 20 109/68 99 08/13/16 04:45 98.8 68 20 110/70 08/13/16 03:45 98.8 69 20 112/68 100 08/13/16 03:30 98.2 71 20 115/67 99 08/13/16 03:10 98.9 70 19 101/60 100 08/13/16 02:05 97.8 68 20 121/58 98 08/13/16 01:25 97.8 68 18 131/58 99 08/13/16 00:22 99 08/13/16 00:19 73 08/12/16 23:17 99.2 76 14 113/60 99 Room Air 08/12/16 22:45 98.7 72 15 125/53 100 Room Air 08/12/16 19:20 78 15 100 Room Air 08/12/16 19:19 80 15 112/58 100 08/12/16 18:33 100 Room Air 08/12/16 17:24 111/68 08/12/16 17:24 97.8 115 22 127/55 97 I/O 08/12/16 08/12/16 08/12/16 08/13/16 08/13/16 08/13/16 07:00 15:00 23:00 07:00 15:00 23:00 Output Total 1585 ml Balance -1585 ml Output Urine Total 1585 ml Imaging Last Impressions Chest X-Ray 08/12/16 1395 Signed Impressions: Service Date/Time: Friday, August 12, 2016 18:13 - CONCLUSION: No acute disease. Herrera Hall MD Laboratory Test 08/12/16 08/12/16 08/12/16 08/12/16 18:00 20:23 21:16 22:40 White Blood Count 15.4 TH/MM3 Red Blood Count 2.59 MIL/MM3 Hemoglobin 8.0 GM/DL Hematocrit 24.0 % Mean Corpuscular Volume 92.4 FL Mean Corpuscular Hemoglobin 30.8 PG Mean Corpuscular Hemoglobin 33.3 % Concent Red Cell Distribution Width 14.1 % Platelet Count 289 TH/MM3 Mean Platelet Volume 8.4 FL Neutrophils (%) (Auto) 82.1 % Lymphocytes (%) (Auto) 11.4 % Monocytes (%) (Auto) 6.4 % Eosinophils (%) (Auto) 0.0 % Basophils (%) (Auto) 0.1 % Neutrophils # (Auto) 12.6 TH/MM3 Lymphocytes # (Auto) 1.8 TH/MM3 Monocytes # (Auto) 1.0 TH/MM3 Eosinophils # (Auto) 0.0 TH/MM3 Basophils # (Auto) 0.0 TH/MM3 CBC Comment DIFF FINAL Differential Comment Prothrombin Time 10.7 SEC Prothromb Time International 1.0 RATIO Ratio Activated Partial 20.5 SEC Thromboplast Time Sodium Level 138 MEQ/L Potassium Level 5.0 MEQ/L Chloride Level 104 MEQ/L Carbon Dioxide Level 25.5 MEQ/L Anion Gap 9 MEQ/L Blood Urea Nitrogen 36 MG/DL Creatinine 1.90 MG/DL Estimat Glomerular Filtration 36 ML/MIN Rate Random Glucose 124 MG/DL Calcium Level 10.1 MG/DL Magnesium Level 2.1 MG/DL Total Bilirubin 0.4 MG/DL Aspartate Amino Transf 13 U/L (AST/SGOT) Alanine Aminotransferase 19 U/L (ALT/SGPT) Alkaline Phosphatase 43 U/L Total Creatine Kinase 30 U/L Troponin I 0.02 NG/ML 0.03 NG/ML Total Protein 6.6 GM/DL Albumin 3.8 GM/DL Lipase 198 U/L Blood Type O POSITIVE O POSITIVE Antibody Screen NEGATIVE Blood Bank Comment Crossmatch Leukocyte-Reduced Red Blood Cells Test 08/13/16 08:30 White Blood Count 8.9 TH/MM3 Red Blood Count 3.05 MIL/MM3 Hemoglobin 9.5 GM/DL Hematocrit 27.3 % Mean Corpuscular Volume 89.6 FL Mean Corpuscular Hemoglobin 31.3 PG Mean Corpuscular Hemoglobin 34.9 % Concent Red Cell Distribution Width 14.5 % Platelet Count 166 TH/MM3 Mean Platelet Volume 8.5 FL Neutrophils (%) (Auto) 55.2 % Lymphocytes (%) (Auto) 34.7 % Monocytes (%) (Auto) 9.7 % Eosinophils (%) (Auto) 0.1 % Basophils (%) (Auto) 0.3 % Neutrophils # (Auto) 4.9 TH/MM3 Lymphocytes # (Auto) 3.1 TH/MM3 Monocytes # (Auto) 0.9 TH/MM3 Eosinophils # (Auto) 0.0 TH/MM3 Basophils # (Auto) 0.0 TH/MM3 CBC Comment DIFF FINAL Differential Comment Sodium Level 141 MEQ/L Potassium Level 3.9 MEQ/L Chloride Level 107 MEQ/L Carbon Dioxide Level 26.6 MEQ/L Anion Gap 7 MEQ/L Blood Urea Nitrogen 24 MG/DL Creatinine 1.26 MG/DL Estimat Glomerular Filtration 58 ML/MIN Rate Random Glucose 99 MG/DL Calcium Level 8.0 MG/DL Troponin I 0.02 NG/ML Physical Examination HEENT: Normocephalic; atraumatic; no jaundice. CHEST: Chest is clear to auscultation and percussion. CARDIAC: RRR ABDOMEN: Soft, nondistended, nontender; no hepatosplenomegaly; bowel sounds are present in all four quadrants. EXTREMITIES: No clubbing, cyanosis, or edema. SKIN: Normal; no rash; no jaundice. LEAD SCIENTIST: No focal deficits; alert and oriented times three. (Jada Beaulieu [facility]) Assessment and Plan Plan ASSESSMENT: - GIB, Melena. Pt c/o black tarry stools since Friday. HH 8.0/24.0 on admission. S/P 2 units PRBC. NPO. Plan for EGD today. - N/V/D consisting of black tarry stools. N/V (nonbloody emesis) and diarrhea with black tarry stools since Friday. He thought this was food poisoning because the night before he ate some pizza from the and his friend felt ill as well. However, he was having melena with this. He does drink 5 drinks a day on Saturdays and Sundays. He takes an aspirin and meloxicam every day for arthritis. He has never had ulcers. He has never had an egd/colonoscopy. Had WBC of 15.4 on admission, this has resolved. He is feeling better. Plan for EGD today. - Anemia, acute blood loss. HH 8.0/24.0 on admission. S/P 2 units PRBC. - Leukocytosis, resolved. Likely reactive. - Chest pain, since symptoms began- pt cannot tell if this is heartburn or his heart but states it feels like severe heartburn. His troponins have been negative. - HTN, CAD, Hyperlipidemia per primary. PLAN: - Plan for EGD once stable from Cardiology standpoint - Obtain consents - Clear liquids - Protonix Gtt - Monitor HH - Transfuse as necessary - Supportive care - Further recommendations to follow based on results of above - Pt seen and examined by Dr. James and myself and this note is written on his behalf Nurse reports that he started having ectopy and runs of Vtach and cardiology has been consulted (Jada Beaulieu) Physician Comments Patient seen and examined Agree with above Continue with current supportive care Monitor labs Await cardiac clearance for EGD (Santosh James MD) Jada Beaulieu Aug 13, 2016 14:43 Santosh James MD Aug 13, 2016 21:28
[2016-08-13] MEDS: FOLIC ACID 1 MG TAB PO SCH (17:45)
[2016-08-13] MEDS: THIAMINE HCL 100 MG TAB PO SCH (17:45)
--- NOTE | 2016-08-13 19:02 | EC ---
Study Study Date:08/13/2016 STUDY CONCLUSIONS SUMMARY - Left ventricle: The cavity size was normal. Wall thickness was normal. Systolic function was normal. The estimated ejection fraction was in the range of 60% to 65%. Wall motion was normal; there were no regional wall motion abnormalities. - Aortic valve: Valve area: 1.79cm^2(VTI). Valve area: 1.65cm^2 (Vmax). - Tricuspid valve: Mild regurgitation. If LV function is below 40, please consider prescribing an ACEI or ARB or document rationale for non-use. PROCEDURE DATA STUDY STATUS: Elective. Procedure: Transthoracic echocardiography. Image quality was good. Scanning was performed from the parasternal, apical, and subcostal acoustic windows. Study completion: The patient tolerated the procedure well. Transthoracic echocardiography. M-mode, complete 2D, complete spectral Doppler, and color Doppler. Patient status: Inpatient. CARDIAC ANATOMY LEFT VENTRICLE: asymmetric septal hypertrophy, no evidence of resting lvot gradient The cavity size was normal. Wall thickness was normal. Systolic function was normal. The estimated ejection fraction was in the range of 60% to 65%. Wall motion was normal; there were no regional wall motion abnormalities. AORTIC VALVE: Trileaflet; mildly thickened leaflets. Doppler: Transvalvular velocity was within the normal range. There was no stenosis. No regurgitation. Valve area: 1.79cm^2(VTI). Valve area: 1.65cm^2 (Vmax). Mean gradient: 7mm Hg (S). Peak gradient: 14mm Hg (S). AORTA: Aortic root: The aortic root was normal in size. MITRAL VALVE: Structurally normal valve. Doppler: Transvalvular velocity was within the normal range. There was no evidence for stenosis. No regurgitation. Valve area by pressure half-time: 2.86cm^2. Peak gradient: 4mm Hg (D). LEFT ATRIUM: The atrium was normal in size. RIGHT VENTRICLE: The cavity size was normal. Wall thickness was normal. PULMONIC VALVE: Doppler: Transvalvular velocity was within the normal range. There was no evidence for stenosis. No regurgitation. TRICUSPID VALVE: Structurally normal valve. Doppler: Transvalvular velocity was within the normal range. Mild regurgitation. PULMONARY ARTERY: The main pulmonary artery was normal-sized. Systolic pressure was within the normal range. RIGHT ATRIUM: The atrium was normal in size. PERICARDIUM: There was no pericardial effusion. SYSTEMIC VEINS: Inferior vena cava: The vessel was normal in size. BASIC MEASUREMENTS ADULT Normal Left ventricle LV internal dimension, ED, chordal level, *38.2 mm 43-52 PLAX LV internal dimension, ES, chordal level, 25.3 mm 23-38 PLAX Fractional shortening, chordal level, PLAX 34 % >29 LV posterior wall thickness, ED 9.39 mm IVS/LVPW ratio, ED *2.13 <1.3 Ventricular septum Septal thickness, ED 20 mm Aortic valve Leaflet separation 16 mm 15-26 Right ventricle RV internal dimension, ED, PLAX 35.7 mm 19-38 BASIC MEASUREMENTS ADULT Normal Aortic valve Leaflet separation 16 mm 15-26 Aorta Root diameter, ED 36 mm 20-37 Left atrium Anterior-posterior dimension, ES 39 mm 19-40 LA/aortic root ratio 1.08 DOPPLER MEASUREMENTS ADULT Normal Aortic valve Peak velocity, S 185 cm/s Mean velocity, S 122 cm/s VTI, S 34.4 cm Mean gradient, S 7 mm Hg Peak gradient, S 14 mm Hg Valve area, VTI 1.79 cm^2 Valve area, Vmax 1.65 cm^2 Mitral valve Peak E-wave velocity 95.8 cm/s Peak A-wave velocity 88.8 cm/s Pressure half-time 77 ms Peak gradient, D 4 mm Hg Peak E/A ratio 1.1 Valve area, pressure half-time 2.86 cm^2 LEGEND: Mean values are shown as u=mean value. Asterisk (*) christie values outside specified normal range. Prepared and signed by Alfonso Mello [id number]
--- NOTE | 2016-08-13 20:29 | MB ---
cc: DANI KATZ MD DATE OF CONSULTATION 08/13/16 HISTORY OF PRESENT ILLNESS A very pleasant 60-year-old gentleman who presented to the ER with severe chest pain, shortness of breath, dyspnea on exertion. Dyspnea on exertion precipitated by walking across the room. He is found to be severely anemic with GI bleeding. REVIEW OF SYSTEMS Significant for vomiting and black diarrhea for two days. No bleeding. No fevers or chills. PAST MEDICAL HISTORY As per history of present illness. 1. History of hypertension, 2. Coronary artery disease status post PCI 3. History of a heart murmur 4. History of gastroesophageal reflux disease 5. Appendectomy SOCIAL HISTORY Drinks admits to four to five drinks a day. Denies tobacco use. ALLERGIES None. MEDICATIONS In the hospital, 1. Metoprolol 12.5 q.12 h 2. Thiamine 100 daily. 3. Folic acid 1 mg daily. 4. IV Pantoprazole PHYSICAL EXAMINATION VITAL SIGNS: Blood pressure 141/80, pulse ranging between 60 and 120, temperature 97.8. Note on admission blood pressure 131/48 with a pulse of 68. Also note he has a 12 beat run of wide complex tachycardia at about 120 beats per minute on the monitor. GENERAL: He is alert and oriented times three in no acute distress NECK: Supple. No JVD, no bruit CARDIOVASCULAR: S1, S2. No murmurs, rubs or gallops. LUNGS: Clear to auscultation bilaterally ABDOMEN: Soft, nontender, nondistended with positive bowel sounds. EXTREMITIES: No lower extremity edema. LABORATORY DATA White count 15.4, hemoglobin 8.0, hematocrit 24.0, platelet count 289. Sodium 138, potassium 5.0, chloride 104, bicarb 25.5, BUN 36 , creatinine 1.90. Troponin is 0.02, and 0.02, albumin 3.8, INR 1.0. IMAGING STUDIES Chest x-ray - No acute disease. CARDIOLOGY STUDIES Echocardiogram read by myself shows EF of 60-65%, mild TR, asymmetric septal hypertrophy with no obvious LV outflow tract gradient, mean aortic valve gradient was 7 mmHg. EKG shows normal sinus rhythm at 69 beats per minute, PVCs, lead reversal most likely between 1 and aVL with T-wave inversion ain 1 and aVL. A second EKG shows sinus bradycardia at 45 beats per minute, biphasic T-wave V1-V2. Her most recent EKG at 3:00 a.m. 08/13/16 shows normal sinus rhythm at 64 beats per minute with T-wave inversion V1. DIAGNOSES 1. GI bleed. 2. Anemia 3. Elevated white count 4. Alcohol abuse. 5. Asymmetric septal hypertrophy. 6. Hypertension 7. Coronary artery disease. 8. Wide complex tachycardia. DISCUSSION Obviously, the patient has a dilemma. It appears by his history that his primary issue is GI bleeding with anemia and that severe anemia precipitated anginal symptoms. However, given a hemoglobin 8 the patient developed no troponin elevation and there were no definite ischemic changes on EKG, although there was biphasic T-waves in V1-V2 which improved after blood transfusion. I have informed the nurse to hold the beta elen given the patient's bradycardia and suspect that the wide complex tachycardia will resolve status post blood transfusion. Would maintain a hemoglobin greater than 10. At this point in time, although risks are high with medical management of coronary artery disease with GI workup primarily as well as alternatively primary cardiac workup with medical management with GI. Howevere, I do think the risk/benefit ratio favors GI evaluation and stabilization first as I am concerned that if the patient requires anticoagulation he may develop a life-threatening bleed and also again he had no significant objective evidence of ischemia even with a hemoglobin of eight. Obviously, he is high risk for non noncardiac procedure given the wide complex tachycardia and the history of coronary artery disease as well as the presentation of unstable angina. I discussed this with the patient and with the nurse at the bedside. If the patient develops any clinical deterioration such as unstable angina, symptoms of angina, hemodynamic instability, cardiac arrhythmia instability would need to strongly consider invasive evaluation and management prior to further GI evaluation and management. MD YASMIN Bulter/ /7:13 PM /8:11 PM
[2016-08-13] MEDS ORDERED: METOPROLOL TARTRATE 25 MG TAB PO SCH (21:00)
--- NOTE | 2016-08-13 21:43 | EKG ---
Date Performed: 08/12/2016 Time Performed: 23:00:02 PTAGE: 60 years EKG: Sinus rhythm WITH OCCASIONAL VENTRICULAR PREMATURE COMPLEXES ARM LEADS REVERSED Since previous tracing, no signif icant change noted BORDERLINE ECG PREVIOUS TRACING : 07/05/2014 16.25 DOCTOR: Angie Lawrence Interpretating Date/Time 08/13/2016 21:42:18
--- NOTE | 2016-08-13 21:43 | EKG ---
Date Performed: 08/13/2016 Time Performed: 04:11:00 PTAGE: 60 years EKG: Sinus rhythm Since previous tracing, no significant change noted NORMAL ECG PREVIOUS TRACING : 08/12/2016 23.00 DOCTOR: Angie Lawrence Interpretating Date/Time 08/13/2016 21:42:34
--- NOTE | 2016-08-13 22:26 | EKG ---
Date Performed: 08/13/2016 Time Performed: 17:02:33 PTAGE: 60 years EKG: SINUS BRADYCARDIA BORDERLINE ECG PREVIOUS TRACING : 08/13/2016 04.11 Compared to prior tracing no significant change DOCTOR: Fernando Houston Interpretating Date/Time 08/13/2016 22:23:39
[2016-08-14] VITALS: BP 120/71; PULSE 55; RESP 20; TEMP 98.1; O2SAT 99
[2016-08-14] MEDS: PANTOPRAZOLE INJ 80 MG in SODIUM CHLORIDE 0.9% INJ 100 ML IV SCH ×2 (01:45→09:39)
[2016-08-14] MEDS: SODIUM CHLOR 0.9% 1000 ML INJ 1,000 ML IV SCH ×3 (03:00→08:55)
[2016-08-14 04:37] VITALS: BP 138/68; PULSE 55; RESP 20; TEMP 98.2; O2SAT 98
[2016-08-14 06:18] LABS: HEMATOCRIT 28.6 % (39.0-51.0); MEAN CORPUSCULAR HEMOGLOBIN 31.8 PG (27.0-34.0); PLATELET COUNT 159 TH/MM3 (150-450); RED BLOOD COUNT 3.15 MIL/MM3 (4.50-5.90); RED CELL DISTRIBUTION WIDTH 14.7 % (11.6-17.2); REVIEW FLAG FINAL; WHITE BLOOD COUNT 8.1 TH/MM3 (4.0-11.0)
[2016-08-14 06:45] LABS: BICARBONATE 24.6 MEQ/L (21.0-32.0); HDL CHOLESTEROL 48.2 MG/DL (40.0-60.0); MAGNESIUM 2.1 MG/DL (1.5-2.5); POTASSIUM 4.6 MEQ/L (3.5-5.1)
--- NOTE | 2016-08-14 08:19 | HHI.PR ---
Subjective Subjective Remarks c/o being hungry mild epigastric pain on palpation no hematemesis no rectal bleeding no cp no sob afebrile had NSVT yesterday, evaluated by cardiology, give Lopressor 12.5 mg po x 1 had 1-2 episodes of tachy, the rest of the time has been bradycardi no chest pressure, no FERREIRA ambulated in hallway Review of Systems Constitutional Constitutional Remarks 12 point ROS completed, negative except as noted above Vitals/Results Intake & Output 08/13/16 08/13/16 08/14/16 15:00 23:00 07:00 Output Total 1585 ml 425 ml Balance -1585 ml -425 ml Output Urine Total 1585 ml 425 ml Vital Signs Vital Signs Date Time Temp Pulse Resp B/P Pulse Ox O2 Delivery O2 Flow Rate FiO2 08/14/16 04:37 98.2 55 20 138/68 98 08/14/16 00:00 98.1 55 20 120/71 99 08/13/16 20:00 47 08/13/16 19:38 98.1 67 20 146/57 98 08/13/16 19:17 98.2 57 20 107/85 99 08/13/16 16:13 97.8 120 19 141/80 98 08/13/16 11:11 98.3 60 18 114/70 98 08/13/16 08:29 97.2 63 18 121/57 92 CBC/BMP: 08/14/16 0545 08/14/16 0545 Lab Results Laboratory Tests Test 08/13/16 08/14/16 08:30 05:45 White Blood Count 8.9 TH/MM3 8.1 TH/MM3 Red Blood Count 3.05 MIL/MM3 3.15 MIL/MM3 Hemoglobin 9.5 GM/DL 10.0 GM/DL Hematocrit 27.3 % 28.6 % Mean Corpuscular Volume 89.6 FL 91.0 FL Mean Corpuscular Hemoglobin 31.3 PG 31.8 PG Mean Corpuscular Hemoglobin 34.9 % 35.0 % Concent Red Cell Distribution Width 14.5 % 14.7 % Platelet Count 166 TH/MM3 159 TH/MM3 Mean Platelet Volume 8.5 FL 8.5 FL Neutrophils (%) (Auto) 55.2 % Lymphocytes (%) (Auto) 34.7 % Monocytes (%) (Auto) 9.7 % Eosinophils (%) (Auto) 0.1 % Basophils (%) (Auto) 0.3 % Neutrophils # (Auto) 4.9 TH/MM3 Lymphocytes # (Auto) 3.1 TH/MM3 Monocytes # (Auto) 0.9 TH/MM3 Eosinophils # (Auto) 0.0 TH/MM3 Basophils # (Auto) 0.0 TH/MM3 CBC Comment DIFF FINAL Differential Comment Sodium Level 141 MEQ/L 141 MEQ/L Potassium Level 3.9 MEQ/L 4.6 MEQ/L Chloride Level 107 MEQ/L 111 MEQ/L Carbon Dioxide Level 26.6 MEQ/L 24.6 MEQ/L Anion Gap 7 MEQ/L 5 MEQ/L Blood Urea Nitrogen 24 MG/DL 13 MG/DL Creatinine 1.26 MG/DL 0.98 MG/DL Estimat Glomerular Filtration 58 ML/MIN 78 ML/MIN Rate Random Glucose 99 MG/DL 91 MG/DL Calcium Level 8.0 MG/DL 7.8 MG/DL Troponin I 0.02 NG/ML Magnesium Level 2.1 MG/DL Triglycerides Level 146 MG/DL Cholesterol Level 124 MG/DL LDL Cholesterol 47 MG/DL HDL Cholesterol 48.2 MG/DL Cholesterol/HDL Ratio 2.57 RATIO Physical Exam General General Appearance: Well Developed, Well Nourished, No Acute Distress, Comfortable Eyes Eye Exam: Pupils Equal, Pupils Reactive Ears & Nose Ears & Nose Exam: Nasal Mucosa Wisner Throat Throat Exam: Oral Mucosa Wisner & Moist Neck Neck Exam: Neck Supple, Trachea Midline Pulmonary Resp Exam: Clear Bilaterally, No Distress Cardiology CV Exam: Bradycardia Gastrointestinal/Abdomen GI Exam: Soft, Bowel Sounds Present, Non-Distended GI Remarks mildly tender epigastric area on palpation Musculoskeletal MS Exam: Joints Intact Integumentary Skin Exam: Warm, Dry Extremeties Extremities Exam: No Edema, Pedal Pulses Palpable Neurologic Neuro Exam: Alert, Awake, Oriented, Speech Clear, Moving All Extremities, No Focal Deficits Psychiatric Psych Exam: Appropriate Responses VTE Prophylaxis VTE Prophylaxis Device: SCDs PUD Prophylasis PUD Prophylaxis: Protonix Assessment/Plan Problem List: (1) Chest pain (2) Hypertension (3) GI bleed (4) Dehydration (5) Leukocytosis (6) Acute renal injury (7) History of coronary artery stent placement (8) Anemia (9) Alcohol abuse (10) Coronary artery disease (11) NSVT (nonsustained ventricular tachycardia) Assessment/Plan 60-year-old male with history of coronary artery disease and prior stent, chronic pain on meloxicam, daily alcohol use. Presented to emergency room with complaint of black tarry stools, 2 days of nausea, vomiting. Patient evaluated in the emergency room, was found with hemoglobin of 8, hematocrit 24 and Hemoccult positive. Also complained of epigastric discomfort, 2 sets of troponin negative and EKG negative, however patient with history of known coronary artery disease. GI bleed, melena -appreciate GI input, plan is for EGD when ok by card Keep nothing by mouth Continue with IV fluids Continue a Protonix drip Continue with serial H&H, stable now, post PRBC Hold aspirin and meloxicam Epigastric discomfort, 2 sets of troponin negative, history of known coronary artery disease, rule out acute coronary syndrome. Trop negative, EKG no changes. -Continue with serial troponin-negative. Unable to give aspirin due to GI bleed Evaluated per Dr. Mello, ok for EGD, likely cause of symptoms due to anemia. Recommends to keep Hgb >10. NSVT likely to improved after PRBC. Recommends to hold BB due to ang[place] Continuous cardiac telemetry -lipid profile noted, LDL okay NSVT, etiology unclear, ? anemia -started on BB, now with bradycardia. Will hold Lopressor -appreciate card input. Acute renal injury due to dehydration. --improved. -continue with IVF -Avoid nephrotoxic agents -Hold Meloxicam -renal function improved Murmur Echocardiogram has been ordered, pending -Cardiology consultation, input appreciated. Daily alcohol use, patient indicates drinking a sixpack every night as well as vodka on the weekends Alcohol abuse counseling Continue with Valium as needed for anxiety Folic acid and thiamine daily Chronic back pain -continue with home meds . SCDs for DVT prophylaxis PPI for GI prophylaxis follow up on EGD results Labs stable. D/W RN D/W Dr. Quintero D/W pt. D/W SUSAN Cooley This patient was seen by myself and Dr. Quintero, this note is written on his behalf. Problem Qualifiers (1) Chest pain: (2) Hypertension: Qualified Code: I10 - Essential hypertension (3) GI bleed: Qualified Code: K92.2 - Gastrointestinal hemorrhage, unspecified gastrointestinal hemorrhage type (4) Leukocytosis: Qualified Code: D72.829 - Leukocytosis, unspecified type (5) Anemia: Qualified Code: D64.9 - Anemia, unspecified type (6) Coronary artery disease: Qualified Code: I25.118 - Coronary artery disease of [place] artery of [place] heart with stable angina pectoris [place] Aug 14, 2016 08:19
[2016-08-14 08:26] VITALS: BP 136/62; PULSE 46; RESP 17; TEMP 98.6; O2SAT 98
--- NOTE | 2016-08-14 09:43 | PD.CARD.PN ---
Subjective Subjective Remarks asleep in nad Objective Vital Signs / I&O Vital Signs Date Time Temp Pulse Resp B/P Pulse Ox O2 Delivery O2 Flow Rate FiO2 08/14/16 08:26 98.6 46 17 136/62 98 08/14/16 04:37 98.2 55 20 138/68 98 08/14/16 00:00 98.1 55 20 120/71 99 08/13/16 20:00 47 08/13/16 19:38 98.1 67 20 146/57 98 08/13/16 19:17 98.2 57 20 107/85 99 08/13/16 16:13 97.8 120 19 141/80 98 08/13/16 11:11 98.3 60 18 114/70 98 I/O 08/13/16 08/13/16 08/13/16 08/14/16 08/14/16 08/14/16 07:00 15:00 23:00 07:00 15:00 23:00 Output Total 1585 ml 425 ml Balance -1585 ml -425 ml Output Urine Total 1585 ml 425 ml Laboratory GENERAL: SKIN: Warm and dry. HEAD: Normocephalic. EYES: No scleral icterus. No injection or drainage. NECK: Supple, trachea midline. No JVD or lymphadenopathy. CARDIOVASCULAR: Regular rate and rhythm without murmurs, gallops, or rubs. RESPIRATORY: Breath sounds equal bilaterally. No accessory muscle use. GASTROINTESTINAL: Abdomen soft, non-tender, nondistended. MUSCULOSKELETAL: No cyanosis, or edema. BACK: Nontender without obvious deformity. No CVA tenderness. Laboratory Tests Test 08/14/16 05:45 White Blood Count 8.1 TH/MM3 Red Blood Count 3.15 MIL/MM3 Hemoglobin 10.0 GM/DL Hematocrit 28.6 % Mean Corpuscular Volume 91.0 FL Mean Corpuscular Hemoglobin 31.8 PG Mean Corpuscular Hemoglobin 35.0 % Concent Red Cell Distribution Width 14.7 % Platelet Count 159 TH/MM3 Mean Platelet Volume 8.5 FL Sodium Level 141 MEQ/L Potassium Level 4.6 MEQ/L Chloride Level 111 MEQ/L Carbon Dioxide Level 24.6 MEQ/L Anion Gap 5 MEQ/L Blood Urea Nitrogen 13 MG/DL Creatinine 0.98 MG/DL Estimat Glomerular Filtration 78 ML/MIN Rate Random Glucose 91 MG/DL Calcium Level 7.8 MG/DL Magnesium Level 2.1 MG/DL Triglycerides Level 146 MG/DL Cholesterol Level 124 MG/DL LDL Cholesterol 47 MG/DL HDL Cholesterol 48.2 MG/DL Cholesterol/HDL Ratio 2.57 RATIO Assessment and Plan Problem List: (1) Coronary artery disease (2) Alcohol abuse (3) Anemia (4) GI bleed (5) Hypertension (6) NSVT (nonsustained ventricular tachycardia) (7) Acute renal injury Assessment and Plan 1.) [place] - suspect due to anemia, assymptomatic after transfusion, high risk for noncardiac procedure, ac held due to gib requiring transfusion, f/u egd results Problem Qualifiers (1) Coronary artery disease: Qualified Code: I25.118 - Coronary artery disease of [place] artery of [place] heart with stable angina pectoris (2) Anemia: Qualified Code: D64.9 - Anemia, unspecified type (3) GI bleed: Qualified Code: K92.2 - Gastrointestinal hemorrhage, unspecified gastrointestinal hemorrhage type (4) Hypertension: Qualified Code: I10 - Essential hypertension Alfonso Mello MD Aug 14, 2016 09:43
[2016-08-14] MEDS ORDERED: PNEUMOCOCCAL POLYVALENT INJ 25 MCG/0.5 ML SYR IM ONE (10:00)
[2016-08-14] MEDS ORDERED: INFLUENZA VIRUS VACCINE (QUADRIVALENT) 0.5 ML SYR IM ONE (10:00)
[2016-08-14 11:00] VITALS: BP 136/62; PULSE 46; RESP 17; TEMP 98.6; O2SAT 98
[2016-08-14] MEDS ORDERED: PROPOFOL 200 MG/20 ML AMP IV ONE (11:17)
--- NOTE | 2016-08-14 11:24 | GIPROC ---
[facility] [address] [facility]. [facility], [address] EGD PROCEDURE REPORT EXAM DATE: 08/14/2016 PATIENT NAME: Chester Esqueda MR #: [id number] BIRTHDATE: 1955 ATTENDING: Santosh James MD ORDER #: [id number] CTC OPERATOR: Dylan Brennan and Michael Norton STATUS: inpatient INDICATIONS: The patient is a 60 yr old male here for an EGD due to anemia and melena PROCEDURE PERFORMED: EGD w/ biopsy MEDICATIONS: None and Per Anesthesia. TOPICAL ANESTHETIC: CONSENT: The patient understands the risks and benefits of the procedure and understands that these risks include, but are not limited to: sedation, allergic reaction, infection, perforation and/or bleeding. Alternative means of evaluation and treatment include, among others: physical exam, x-rays, and/or surgical intervention. The patient elects to proceed with this endoscopic procedure. medical equipment was checked for proper function. Hand hygiene and appropriate measures for infection prevention was taken. After the risks, benefits and alternatives of the procedure were thoroughly explained, Informed consent was verified, confirmed and timeout was successfully executed by the treatment team. The patient was anesthetized with topical anesthesia and the Pentax [id number] endoscope was introduced through the mouth and advanced to the second portion of the duodenum. Retroflexed views revealed no abnormalities The gastroscope was then slowly withdrawn and removed. STOMACH: Three small non-bleeding, round, shallow and clean-based ulcers were found in the gastric antrum. Biopsies were taken at edge of the ulcers. There was mild erosive gastritis in the gastric antrum. The endoscopy was otherwise normal. ADVERSE EVENTS: There were no complications. IMPRESSIONS: 1. Three small ulcers were found in the gastric antrum; biopsies were taken 2. There was mild gastritis in the gastric antrum 3. Normal endoscopy otherwise 4. Retroflexed views revealed no abnormalities RECOMMENDATIONS: 1. Await biopsy results. Biopsy results will not be ready for 7-10 days. If you don't hear from us in two weeks, call our office for biopsy results. 2. Avoid NSAIDS 3. Continue PPI 4. Follow-up: GI clinic 4 week(s) PATIENT CONDITION: stable DISPOSITION: Inpatient REPEAT EXAM: Return 2 months EGD Santosh James MD eSigned: Santosh James MD 08/14/2016 11:23 AM cc: PATIENT NAME: Chester Esqueda MR#: [id number]
[2016-08-14 12:13] VITALS: BP 132/70; PULSE 55; RESP 18; TEMP 97.8; O2SAT 99
[2016-08-14] MEDS: SODIUM CHLORIDE 0.9% FLUSH 10 ML FLUSH IV FLUSH SCH (12:59)
[2016-08-14] MEDS: THIAMINE HCL 100 MG TAB PO SCH (13:00)
[2016-08-14] MEDS: FOLIC ACID 1 MG TAB PO SCH (13:01)
[2016-08-14 15:51] VITALS: BP 97/59; PULSE 66; RESP 18; TEMP 98.1; O2SAT 97
[2016-08-14] MEDS ORDERED: ZANT150T2 PO (17:40)
--- NOTE | 2016-08-14 17:41 | HHI.DCPOC ---
Discharge Care Plan Diagnosis: (1) NSVT (nonsustained ventricular tachycardia) (2) History of coronary artery stent placement (3) Acute renal injury (4) Leukocytosis (5) Dehydration (6) GI bleed (7) Hypertension (8) Chest pain (9) Anemia (10) Alcohol abuse Your Health Problems Are: Bleeding Tendency Chest Pain Shortness of Breath Goals to Promote Your Health * To prevent worsening of your condition and complications * To maintain your health at the optimal level Directions to Meet Your Goals Take your medications as prescribed Follow your dietary instruction Follow activity as directed Keep your appointments as scheduled Take your immunizations and boosters as scheduled If your symptoms worsen call your PCP, if no PCP go to Urgent Care Center or Emergency Room Smoking is Dangerous to Your Health. Avoid second hand smoke Call the 24-hour hour crisis hotline for domestic abuse at [place] [facility] Aug 14, 2016 17:41
[2016-08-14] MEDS ORDERED: PREV30CA11 PO (17:46)
== END 2016-08-14 22:54 | disposition home or self-care (01) | DRG 378 ==
LOC: NETRI 17:22 → NEDA 20:24 → NEPGCP 23:36
PROVIDERS: ADMIT Specialist; ATTEND Specialist
PROC: 30233N1 Transfusion of Nonautologous Red Blood Cells into Peripheral Vein, Percutaneous Approach (ICD-10-PCS; principal; 2016-08-12)
PROC: 0DB68ZX Excision of Stomach, Via Natural or Artificial Opening Endoscopic, Diagnostic (ICD-10-PCS; 2016-08-14)
DX: K92.2 Gastrointestinal hemorrhage, unspecified (principal); N17.9 Acute kidney failure, unspecified; I47.2 Ventricular tachycardia; D62 Acute posthemorrhagic anemia; K29.70 Gastritis, unspecified, without bleeding; E86.0 Dehydration; I25.118 Atherosclerotic heart disease of native coronary artery with other forms of angina pectoris; I10 Essential (primary) hypertension; R10.13 Epigastric pain; F10.10 Alcohol abuse, uncomplicated; R00.1 Bradycardia, unspecified; D72.829 Elevated white blood cell count, unspecified; R11.2 Nausea with vomiting, unspecified; I25.2 Old myocardial infarction; R01.1 Cardiac murmur, unspecified; M19.90 Unspecified osteoarthritis, unspecified site; G89.29 Other chronic pain; F41.9 Anxiety disorder, unspecified; K21.9 Gastro-esophageal reflux disease without esophagitis; M54.9 Dorsalgia, unspecified; Z95.5 Presence of coronary angioplasty implant and graft; Z23 Encounter for immunization
CPT/HCPCS: 36430; 71010; 80048; 80053; 80061; 82550; 83690; 83735; 84484; 85025; 85027; 85610; 85730; 86850; 86900; 86901; 86920; 88305; 88312; 90732; 93005; 93306; 96374; C9113; J7030; J7050; P9016